=== PATIENT | male | born 1960 | race Caucasian/White ===

== ENCOUNTER 2016-04-04 06:45 | Day surgery (SDC) ==
[2016-04-04] MEDS ORDERED: NS 1,000 ML ONE (07:04)
[2016-04-04] MEDS ORDERED: MYLICON DROPS (DOSE) MISC ONE (09:21)
[2016-04-04] MEDS ORDERED: DIPRIVAN 1% 50 ML ONE (10:20)
[2016-04-04] MEDS ORDERED: DIPRIVAN 1% ONE (10:20)
[2016-04-04] MEDS ORDERED: XYLOCAINE-MPF 2% ONE (10:24)
[2016-04-04 10:50] VITALS: BP 120/76
[2016-04-04 11:00] LABS: MANUAL DIFF NEEDED? NO
[2016-04-04 11:04] LABS: BASO% 0.4 % (0.0-0.8); EOS# 0.24 X1000 (0.0-0.7); EOS% 2.5 % (0.0-10.0); HEMATOCRIT 46.9 % (42.0-52.0); HEMOGLOBIN 16.7 g/dL (14.0-18.0); IMM GRAN# 0.03 X1000 (0.0-0.04); IMM GRAN% 0.3 % (0.0-0.5); LYMPH# 2.14 X1000 (1.2-3.4); LYMPH% 22.4 % (20.5-51.1); MCH 32.1 PG (27-31); MCHC 35.6 g/dL (33-37); MONO% 10.4 % (1.7-9.3); MPV 10.4 FL (7.4-10.4); PLT 217 X1000 (130-400); RBC 5.21 XMIL (4.7-6.1)
[2016-04-04] MEDS ORDERED: VERSED ONE (12:14)
[2016-04-05 09:41] LABS: HIV ANTIBODY SCREEN SEE COMMENTS (())
--- NOTE | 2016-04-10 04:06 | OPERATIVE NOTE ---
PROCEDURE DATE: 04/04/2016 REFERRING PHYSICIAN: Julio Cesar Mathew MD INDICATIONS FOR PROCEDURE: 1. Dysphagia. 2. Newly diagnosed cirrhosis. 3. Colitis on CT scan. 4. Diarrhea. 5. Family history of colon cancer. PROCEDURE PERFORMED: Esophagogastroduodenoscopy with biopsy. CONSENT: Informed consent was obtained from the patient prior to the procedure. MEDICATIONS: The patient received monitored anesthesia care. PERFORMING PHYSICIAN: Addis Carter MD. ASSISTANTS: 1. [facility] 2. Sarah Storey RN 3. Cinthya Moss CRNA. 4. Anil Santana CRNA. 5. Anil Santiago MD (Anesthesia). COMPLICATIONS: There were no complications. ESTIMATED BLOOD LOSS: Less than 1 mL. SPECIMENS REMOVED: 1. Duodenal biopsy. 2. Duodenal polyp biopsy. 3. Gastric biopsy. FINDINGS: After sedation was achieved, the upper endoscope was inserted to the second portion of the duodenum. The hypopharynx appeared endoscopically normal. In the esophagus, there were whitish plaques throughout the lining of the esophagus consistent with Deisy esophagitis. There was no evidence of esophageal varices or Arboleda's esophagus. The GE junction was measured at 40 cm from the incisors. In the gastric lumen, there was erosive gastritis in the antrum, fundus, and body. There is a superficial whitish based ulcer in the mid gastric body. There were mucosal changes consistent with portal gastropathy. There was no active bleeding. On retroflexed view, there was no evidence of gastric varices. On forward view, the pylorus was inflamed, but patent. In the duodenum, there were 4 large duodenal polyps that ranged in size from 10-20 mm. Biopsies were taken. In addition, the surrounding mucosa was inflamed, consistent with duodenitis. Biopsies were taken. After the exam was complete, lumen was decompressed and the scope was removed without incident. IMPRESSION: 1. Deisy esophagitis. 2. No esophageal varices. 3. Erosive gastritis. 4. Superficial gastric ulcer in the mid-gastric body. 5. Probable portal gastropathy. 6. No evidence of gastric varices. 7. Duodenitis. 8. Large duodenal polyps. RECOMMENDATIONS: 1. Await biopsy results. 2. Begin Diflucan 200 mg on day 1, followed by 100 mg daily for 20 days for a total of 21 days of therapy. 3. Begin Protonix 40 mg daily. 4. Repeat esophagogastroduodenoscopy based on biopsy results. 5. Proceed with colonoscopy as previously scheduled. 6. I will also check a CBC and an HIV to assess for immunocompetency in light of the unexplained Deisy esophagitis.
--- NOTE | 2016-04-10 04:16 | OPERATIVE NOTE ---
PROCEDURE DATE: 04/04/2016 REFERRING PHYSICIAN: Julio Cesar Mathew MD. INDICATION FOR PROCEDURE: 1. Colitis on CT. 2. Diarrhea. 3. Family history of colon cancer. PROCEDURE PERFORMED: 1. Colonoscopy with polypectomy. 2. Colonoscopy with biopsy. CONSENT: Informed consent was obtained from the patient prior to the procedure. The risks, benefits, and alternatives were discussed. MEDICATIONS: The patient received monitored anesthesia care. PERFORMING PHYSICIAN: Addis Carter MD. ASSISTANTS: 1. [facility] 2. Sarah Storey RN. 3. Cinthya Moss CRNA. 4. Anil Santana CRNA. 5. Enoc Santiago MD (anesthesia). COMPLICATIONS: There were no complications. ESTIMATED BLOOD LOSS: Less than 1 mL. SPECIMENS REMOVED: 1. Ascending colon polyps x3. 2. Transverse colon polyps x2. 3. Random colon biopsies. 4. Polyp at 60 cm x2. 5. Polyp at 40 cm. 6. Polyp at 20 cm. FINDINGS: After sedation was achieved and the EGD performed, the pediatric colonoscope was inserted to the cecum. The terminal ileum, ileocecal valve, and appendiceal orifice appeared endoscopically normal. Upon withdrawal, there were 3 sessile polyps in the ascending colon that ranged in size from 5-10 mm that were removed by snare cautery. In the transverse colon, there were 2 polyps that ranged in size from 5-10 mm that were removed by snare cautery. At 60 cm, there were 2 polyps that ranged in size from 5-10 mm removed by snare cautery. At 40 cm from insertion, there was 1 polyp that was removed by snare cautery that ranged in size from 5-10 mm. At 20 cm, there was 1 polyp that ranged in size from 5-10 mm. In the upper rectum, there were grade 2 internal hemorrhoids. On retroflexed view, there were large external hemorrhoids. It should be noted that there were scattered nonbleeding AVMs throughout the colonic lumen that remain intact. CECAL INTUBATION TIME: 4 minutes. WITHDRAWAL TIME: 26 minutes. PREP QUALITY: Good. ASA: 2. IMPRESSION: 1. Multiple colon polyps. 2. Multiple nonbleeding arteriovenous malformations. 3. Large internal hemorrhoids, grade 2. 4. Large external hemorrhoids. RECOMMENDATION: 1. Await biopsy results. 2. Repeat colonoscopy in 3 years as the patient had a total of nine polyps removed; however, all were smaller than 1 cm. 3. We will have the patient return to clinic in 4 weeks to assess interval progress. Please see the EGD report for additional details.
== END 2016-04-04 10:51 | disposition home or self-care (01) ==
LOC: ENDO 06:45
PROVIDERS: ATTEND Internal Medicine Gastroenterology
DX: D12.2 Benign neoplasm of ascending colon (principal); D12.3 Benign neoplasm of transverse colon; K63.5 Polyp of colon; B37.81 Candidal esophagitis; K25.9 Gastric ulcer, unspecified as acute or chronic, without hemorrhage or perforation; K29.80 Duodenitis without bleeding; K31.7 Polyp of stomach and duodenum; I10 Essential (primary) hypertension
CPT/HCPCS: 85025; 86701; 88305; 88312; 88313; J2250; J7030